=== PATIENT | female | born 1935 | race Caucasian/White ===

== ENCOUNTER 2022-01-07 14:59 | Inpatient (IN) ==
[2022-01-07] MEDS ORDERED: Naloxone 0.4 MG/ML INJ IVP PRN (18:31)
[2022-01-07] MEDS ORDERED: Acetaminophen 325 MG TABLET PO PRN (18:31)
[2022-01-07] MEDS ORDERED: MOM Conc 10 ML UD.LIQ PO ONE (20:05)
[2022-01-07] MEDS ORDERED: Milk and Molasses Enema 200 ML RC ONE (20:05)
[2022-01-07] MEDS ORDERED: Lactulose Oral Soln 20 GM/30 ML UDC PO SCH (21:00)
[2022-01-07] MEDS ORDERED: Ondansetron 4 MG/2 ML VIAL IVP PRN (21:15)
[2022-01-07 21:30] LABS: Basophils % 0.3 %; Eosinophils # 0.1 K/mcL (0.0-0.6); Eosinophils % 0.6 %; Hematocrit 37.5 % (35.3-44.9); Hemoglobin 12.3 g/dL (11.5-15.4); Immature Granulocytes % 0.4 % (0-4); Lymphocytes # 1.4 K/mcL (0.6-4.6); Lymphocytes % 11.3 %; Mean Corpuscular HGB Conc 32.8 g/dL (31.6-35.5); Mean Corpuscular Hemoglobin 32.3 pg (28.0-33.3); Mean Corpuscular Volume 98.4 fL (83.0-100.0); Mean Platelet Volume 9.9 fL (9.4-12.4); Monocytes # 0.8 K/mcL (0.0-1.3); Monocytes % 6.3 %; Neutrophils # 9.7 K/mcL (1.6-8.9); Platelet Count 267 K/mcL (140-400); Red Blood Count 3.81 M/mcL (3.82-4.97); Segmented Neutrophils % 81.1 %; White Blood Count 11.9 K/mcL (4.3-11.1)
[2022-01-07 21:34] LABS: Albumin 3.3 g/dL (3.5-5.7); Albumin/Globulin Ratio 1.4 (1.1-2.2); Bilirubin,Total 0.7 mg/dL (0.3-1.0); Calcium 8.7 mg/dL (8.6-10.3); Globulin 2.4 g/dL (2.4-3.5); Total Protein 5.7 g/dL (6.4-8.9)
[2022-01-07] MEDS: Sennosides/Docusate Sodium TABLET PO SCH ×2 (22:58→23:00)
[2022-01-07] MEDS: Apixaban 5 MG TABLET PO SCH (22:59)
[2022-01-08 01:35] LABS: Basophils % 0.3 %; Eosinophils # 0.1 K/mcL (0.0-0.6); Eosinophils % 0.4 %; Hematocrit 39.2 % (35.3-44.9); Hemoglobin 12.6 g/dL (11.5-15.4); Immature Granulocytes % 0.4 % (0-4); Lymphocytes # 1.3 K/mcL (0.6-4.6); Lymphocytes % 11.4 %; Mean Corpuscular HGB Conc 32.1 g/dL (31.6-35.5); Mean Corpuscular Hemoglobin 31.7 pg (28.0-33.3); Mean Corpuscular Volume 98.5 fL (83.0-100.0); Mean Platelet Volume 10.1 fL (9.4-12.4); Monocytes # 0.9 K/mcL (0.0-1.3); Monocytes % 7.9 %; Platelet Count 244 K/mcL (140-400); Red Blood Count 3.98 M/mcL (3.82-4.97); Red Cell Distribution Width 13.8 % (11.5-14.5); Segmented Neutrophils % 79.6 %; White Blood Count 11.3 K/mcL (4.3-11.1)
[2022-01-08 01:39] LABS: INR 1.4; Prothrombin Time 15.7 Seconds (9.4-12.1)
[2022-01-08 01:41] LABS: Activated Partial Thrombo Time 37.3 Seconds (26.0-36.0)
[2022-01-08 01:51] LABS: Calcium 8.6 mg/dL (8.6-10.3); Chol/HDL Ratio 2.5 (0-4.9); Magnesium 2.4 mg/dL (1.6-2.6); Potassium 4.2 mEq/L (3.5-5.1)
[2022-01-08 02:47] LABS: Estimated Average Glucose 103 mg/dl; Hemoglobin A1C 5.2 %
[2022-01-08] MEDS ORDERED: lisinopriL 5 MG TABLET PO SCH (09:00)
[2022-01-08] MEDS: Apixaban 5 MG TABLET PO SCH ×2 (09:25→23:38)
[2022-01-08] MEDS: Sennosides/Docusate Sodium TABLET PO SCH (09:25)
[2022-01-08] MEDS ORDERED: Iopamidol - 370 500 ML MLS IVP ONE (10:27)
[2022-01-08] MEDS: Pantoprazole 40 MG VIAL IVP SCH (11:15)
[2022-01-08] MEDS: 0.9 % Sodium Chloride 1,000 ML IVC SCH ×2 (11:22→23:37)
[2022-01-08] MEDS ORDERED: Iopamidol - 370 500 ML MLS PO ONE (14:01)
[2022-01-08] MEDS: OLANZapine 5 MG TAB.RAPDIS PO SCH (23:37)
[2022-01-09 06:25] LABS: Bacteria,Urine Few per hpf (None-Few); Bilirubin,Urine Negative (Negative); Blood,Urine Negative (Negative); Clarity,Urine Clear (Clear); Color,Urine Light-Orange (Yellow); Glucose,Urine (UA) Normal (Normal); Ketones,Urine Negative (Negative); Leukocyte Esterase,Urine Large (Negative); Mucus,Urine Few per lpf (None-Few); Nitrite,Urine Negative (Negative); Protein,Urine Trace mg/dL (Neg-Trace); RBC,Urine 0-3 per hpf (0-3); Specific Gravity,Urine 1.018 (1.010-1.025)
[2022-01-09] MEDS: Pantoprazole 40 MG VIAL IVP SCH (08:42)
[2022-01-09] MEDS: Apixaban 5 MG TABLET PO SCH ×2 (08:45→22:19)
[2022-01-09] MEDS: 0.9 % Sodium Chloride 1,000 ML IVC SCH (13:38)
[2022-01-09] MEDS: OLANZapine 5 MG TAB.RAPDIS PO SCH (22:18)
[2022-01-10] MEDS: 0.9 % Sodium Chloride 1,000 ML IVC SCH (02:49)
[2022-01-10 04:29] LABS: Basophils % 0.3 %; Eosinophils # 0.1 K/mcL (0.0-0.6); Eosinophils % 2.1 %; Immature Granulocytes % 0.8 % (0-4); Lymphocytes % 29.7 %; Mean Corpuscular HGB Conc 31.6 g/dL (31.6-35.5); Mean Corpuscular Hemoglobin 31.9 pg (28.0-33.3); Mean Corpuscular Volume 100.9 fL (83.0-100.0); Mean Platelet Volume 9.7 fL (9.4-12.4); Monocytes # 0.5 K/mcL (0.0-1.3); Monocytes % 7.6 %; Neutrophils # 3.9 K/mcL (1.6-8.9); Platelet Count 214 K/mcL (140-400); Red Blood Count 3.17 M/mcL (3.82-4.97); Red Cell Distribution Width 14.1 % (11.5-14.5); Segmented Neutrophils % 59.5 %; White Blood Count 6.6 K/mcL (4.3-11.1)
[2022-01-10 04:34] LABS: Hemoglobin 10.1 g/dL (11.5-15.4)
[2022-01-10 04:49] LABS: Calcium 7.6 mg/dL (8.6-10.3); Potassium 3.9 mEq/L (3.5-5.1)
[2022-01-10] MEDS: Pantoprazole 40 MG VIAL IVP SCH (09:58)
[2022-01-10] MEDS: Apixaban 5 MG TABLET PO SCH (10:00)
[2022-01-10 11:46] VITALS: BP 133/81; PULSE 63; TEMP 98.3; O2SAT 94
== END 2022-01-10 17:13 | DRG 392 ==
LOC: 2ANU → SUATTDRO 17:57
PROVIDERS: ADMIT Pharmacist; ATTEND General Practice